=== PATIENT | male | born 1995 | race Two or more races ===

== ENCOUNTER 2021-07-16 11:14 | Emergency (ER) | payer OTHER ==
[~2021-07-16] VITALS: Ht 182.9 cm; Wt 73.9 kg
[2021-07-16] MEDS ORDERED: KETO10TA2 PO (13:34)
[2021-07-16] MEDS ORDERED: ORPHENADRINE C100 MG PO (13:34)
== END 2021-07-16 13:41 | disposition home or self-care (01) ==
LOC: ER 11:14
DX: M94.0 Chondrocostal junction syndrome [Tietze] (principal); R07.89 Other chest pain

== ENCOUNTER 2023-02-11 19:28 | Emergency (ER) | payer OTHER ==
[~2023-02-11] VITALS: Ht 182.9 cm; Wt 78.5 kg
[~2023-02-11 19:28] MED LIST: KETO10TA2 PO; ORPHENADRINE C100 MG PO
[2023-02-11] MEDS ORDERED: AMOX-CLAV 875-1 EACH PO (20:52)
[2023-02-11] MEDS ORDERED: PEPCID AC20 MG PO (20:52)
[2023-02-11] MEDS ORDERED: KETO10TA2 PO (20:52)
== END 2023-02-11 21:49 | disposition home or self-care (01) ==
LOC: ER 19:28
DX: H66.93 Otitis media, unspecified, bilateral (principal); Z88.8 Allergy status to other drugs, medicaments and biological substances